=== PATIENT | female | born 1985 | race Caucasian/White ===

== ENCOUNTER 2017-06-27 05:55 | Day surgery (SDC) | payer OTHER, SELFPAY ==
[2017-06-27 06:51] LABS: Hematocrit 36.8 % (37-47); Mean Corp Hgb Conc 35.3 g/gl (32-36); Mean Corpuscular Hgb 30.4 pg (27.0-32.0); Mean Corpuscular Volume 86.2 fL (81-99); Mean Platelet Vol. 9.7 fl (6.2-12.0); Platelet Count 241 K/mm3 (150-450); RBC Distribution Width CV 13.3 % (11.6-14.6); Red Blood Count 4.27 M/mm3 (4.2-5.4)
[2017-06-27 06:54] LABS: Scan Indicated on CBC? Y/N NO
[2017-06-27 07:13] VITALS: BP 109/74; PULSE 87; RESP 16; TEMP 36.8; O2SAT 100; BMI 25.3
[2017-06-27] MEDS: Doxycycline 100 MG CAPSULE PO (07:24)
[2017-06-27] MEDS: Acetaminophen 500 MG Tablet 1000 MG PO (07:24)
[2017-06-27] MEDS: Ketorolac 60 MG/2 ML Vial IM (07:25)
--- NOTE | 2017-06-27 07:30 | POC_PTH ---
PATIENT: ROLO BERMAN [place] [facility] [place][id number] AGE/SX: 31/F ROOM: RE06/27/[address]: Dr. Leatha Guadarrama MD : 1985 BED: DIS: 06/27/2017 SPEC #: [id number] RECD: 06/27/17 08:39 STATUS: TERRY JAMES #: [id number] IDALMIS: 06/27/17 07:[address]: Leatha Guadarrama DEPT: SURGICAL PATHOLOGY RECD BY: Javi Miranda ENTERED: 06/27/17 12:10 SP TYPE: PROD CONC OTHR DR: Dr. Yony Rodriguez, DO Tissues: Product of conception, NOS Procedures: Surgery Specimen Level IV HEADER OPERATION: Dilation and curettage, suction PRE-OP DIAGNOSIS: Missed TISSUE SUBMITTED: Products of conception MICROSCOPIC DIAGNOSIS Products of conception: Decidua, immature placental tissue and tissue (products of conception). SJ:yeni 06/28/16 MICROSCOPIC DESCRIPTION Slides are reviewed. GROSS DESCRIPTION Received in fixative is one container labeled with the patient's name and designated products of conception. The specimen consists of multiple irregular fragments of pink-red soft tissue mixed with placental tissue that in aggregate measure 7 x 7 x 3 cm. A few pieces of tissue is also noted. Pig Handler tissue is submitted in three cassettes. Cassette 3 also contains the tissue. / SJ:yeni 06/27/17 TC:5 CPT: 37239
[2017-06-27] MEDS: Lubricating Jelly 60 GM Tube 30 GM TOPICAL (07:45)
[2017-06-27] MEDS: Methylergonovine 0.2 MG/ML Ampul IM (07:57)
--- NOTE | 2017-06-27 08:03 | OP.PCM_ITS ---
Report of Operation Date of Procedure: 06/27/17 Pre-Operative Diagnosis: 12 week missed Post-Operative Diagnosis: same Surgery/Procedure Performed:: Suction D&C Description of Surgical Findings:: Appearing cervix, 12 week size anteverted uterus mainframe programmer analyst: aldair anguiano ms3 Type of Anesthesia:: MAC/Supplemental/Local Anesthesiologist: Shelton Nelson Special Medications: None Specimen's removed: products of conception Drains: None Estimated Blood Loss (mL): 50 cc Fluids Replaced: 700 cc LR Description of Procedure: The patient was taken to the operating room where she was prepped and draped in a dorsolithotomy position. A bimanual examination was done and confirmed the uterus to be 12 weeks size and [anteverted]. A weighted speculum was placed in the vagina and the anterior lip of the cervix was grasped with a single-tooth tenaculum. The cervix was dilated serially. A 12 mm suction curette was placed to the uterine fundus and the suction was created. Several passes were made to remove clots and products of conception. When minimal tissue was returning a gentle sharp curettage was then done of the uterine cavity. The uterine cry was appreciated and another gentle pass was made with the suction curette. At this point there is no active bleeding from the uterus and minimal blood and no further products of conception were removed. The instruments removed from the cervix and the cervix was observed and no active bleeding was identified. The tenaculum was removed off the cervix and hemostasis of the tenaculum site was assured. Made of the instruments removed from the vagina and the vaginal sweep was completed by me. Sponge and needle counts were correct. The patient was taken to the recovery room in stable condition. Methergine 0.25 mg IM given ?1 Findings: 12 week size uterus, normal cervix and vagina. Specimen: Products of conception Grafts/Implants Used: None - Complications None - Admit VTE Documentation VTE Present on Admission: No VTE Mechan Device Prophylaxis: SCD's VTE Pharm Prophylaxis ordered?: No Reason prophylaxis not ordered:: Procedure Not Indicated
[2017-06-27 08:05] VITALS: BP 109/74; BP 115/83; PULSE 82; RESP 16; TEMP 36.4; O2SAT 94
[2017-06-27 08:15] VITALS: BP 109/74; BP 115/78; PULSE 74; RESP 16; O2SAT 99
[2017-06-27 08:30] VITALS: BP 108/74; BP 109/74; PULSE 72; RESP 16; TEMP 36.3; O2SAT 98
[2017-06-27 09:36] VITALS: BP 109/74
== END 2017-06-27 09:39 | disposition home or self-care (01) ==
LOC: SDC 05:57 → AC 05:58
PROVIDERS: Family Provider Preventive Medicine Occupational Medicine; PCP Preventive Medicine Occupational Medicine; Visit Provider Obstetrics & Gynecology
PROC: (CPT 59820; principal; 2017-06-27 07:15)
DX: O02.1 Missed abortion (principal); K58.9 Irritable bowel syndrome, unspecified; M79.7 Fibromyalgia; L40.50 Arthropathic psoriasis, unspecified; Z3A.12 12 weeks gestation of pregnancy
CPT/HCPCS: 01965; 59820; 85027; 86850; 86900; 88305; J7120

== ENCOUNTER 2017-07-06 12:50 | Day surgery (SDC) | payer OTHER, SELFPAY ==
[2017-07-06 13:20] VITALS: BP 116/70; PULSE 71; RESP 16; TEMP 36.6; O2SAT 100; BMI 25.5
[2017-07-06] MEDS: Ketorolac 60 MG/2 ML Vial IM (13:26)
[2017-07-06] MEDS: Acetaminophen 500 MG Tablet 1000 MG PO (13:26)
[2017-07-06] MEDS: Doxycycline 100 MG CAPSULE PO (13:26)
[2017-07-06 13:55] LABS: Hematocrit 38.1 % (37-47); Hemoglobin 12.9 g/dl (12.0-15.0); Mean Corp Hgb Conc 33.9 g/gl (32-36); Mean Corpuscular Hgb 29.3 pg (27.0-32.0); Mean Corpuscular Volume 86.6 fL (81-99); Mean Platelet Vol. 9.6 fl (6.2-12.0); Platelet Count 273 K/mm3 (150-450); RBC Distribution Width CV 13.2 % (11.6-14.6); RBC Distribution Width SD 42.2 fl (35.1-43.9); Scan Indicated on CBC? Y/N NO; White Blood Count 5.4 K/mm3 (4.4-11.0)
[2017-07-06 14:13] LABS: hCG Titer Quant., Serum 338 mIU/mL (<9 non-preg)
--- NOTE | 2017-07-06 14:35 | EMB_PTH ---
PATIENT: ROLO BERMAN LOC: [facility] [place] U#:[id number] AGE/SX: 31/F ROOM: RE07/06/[address]: Dr. Leatha Guadarrama MD : 1985 BED: DIS: 07/06/2017 SPEC #: [id number] RECD: 07/06/17 15:47 STATUS: TERRY JAMES #: [id number] IDALMIS: 07/06/17 14:[address]: Leatha Guadarrama DEPT: SURGICAL PATHOLOGY RECD BY: Man Monique ENTERED: 07/07/17 11:57 SP TYPE: ENDOM BX/C IGLESIA DR: Dr. Yony Rodriguez, DO Tissues: Endometrium, NOS Procedures: Surgery Specimen Level IV HEADER OPERATION: Dilation and curettage, suction PRE-OP DIAGNOSIS: Incomplete with ongoing bleeding and possible retained products of conception in the uterus TISSUE SUBMITTED: Endometrial curettings MICROSCOPIC DIAGNOSIS Endometrial curettings: Fragments of decidua, endometrial tissue and a few immature chorionic villi and blood clots (consistent with retained products of conception). LASHAY:yeni 07/10/17 COMMENT Please make reference to previous specimen ([id number]) products of conception with diagnosis of decidua, immature placental tissue and tissue (products of conception). MICROSCOPIC DESCRIPTION Slides are reviewed. GROSS DESCRIPTION Received in fixative is one container labeled with the patient's name and designated endometrial curettings. The specimen consists of multiple irregular fragments of pink-vega soft tissue that in aggregate measure 4 x 3.5 x 0.8 cm. The specimen is totally submitted in three cassettes. / Jewell 07/07/17 TC:5 CPT: 43624
--- NOTE | 2017-07-06 15:21 | PCM.DC.D&C ---
Discharge Diet: No Restrictions Discharge Activity: Return to Normal Activity, May Shower, May Take a Tub Bath - in 2 weeks. Allergies/Adverse Reactions: Allergies No Known Allergies Allergy (Verified 06/26/17 15:59) Medications to take at Discharge Lactobacillus Combination No.4 [Probiotic] 1 each PO DAILY 06/26/17 Pnv95/Ferrous Fumarate/FA [ Formula Tablet] 1 each PO DAILY 06/26/17 Primary Care Physician: Yony Rodriguez DO [Primary Care Provider] - Please Follow Up With: Leatha Guadarrama MD - [phone] When: 2-4 weeks
[2017-07-06 15:26] VITALS: BP 115/78; BP 116/70; PULSE 70; RESP 16; TEMP 36.6; O2SAT 100
--- NOTE | 2017-07-06 15:26 | OP.PCM_ITS ---
Report of Operation Date of Procedure: 07/06/17 Pre-Operative Diagnosis: incomplete w/ ongoing bleeding Post-Operative Diagnosis: same Surgery/Procedure Performed:: suction D&C Description of Surgical Findings:: nromal cervix staking engineer: AILEEN Grossman Type of Anesthesia:: MAC/Supplemental/Local Anesthesiologist: Khris Giordano Special Medications: none Specimen's removed: endometrial curettings Drains: none Estimated Blood Loss (mL): 10cc Fluids Replaced: 700 cc LR Description of Procedure: The patient was taken to the operating room where she was prepped and draped in a dorsolithotomy position. A bimanual examination was done and confirmed the uterus to be 6 weeks size and [anteverted]. A weighted speculum was placed in the vagina and the anterior lip of the cervix was grasped with a single-tooth tenaculum. The cervix was dilated serially. A 7 mm suction curette was placed to the uterine fundus and the suction was created. Several passes were made to remove clots and products of conception. When minimal tissue was returning a gentle sharp curettage was then done of the uterine cavity. The uterine cry was appreciated and another gentle pass was made with the suction curette. At this point there is no active bleeding from the uterus and minimal blood and no further products of conception were removed. The instruments removed from the cervix and the cervix was observed and no active bleeding was identified. Did a brief ultrasound which confirmed a bright white endometrial stripe. The tenaculum was removed off the cervix and hemostasis of the tenaculum site was assured. Made of the instruments removed from the vagina and the vaginal sweep was completed by me. Sponge and needle counts were correct. The patient was taken to the recovery room in stable condition. Findings: 6 week size uterus, normal cervix and vagina. Specimen: Endometrial curettings and possible products of conception Grafts/Implants Used: none - Complications none - Admit VTE Documentation VTE Present on Admission: No VTE Mechan Device Prophylaxis: SCD's VTE Pharm Prophylaxis ordered?: No Reason prophylaxis not ordered:: Procedure Not Indicated
[2017-07-06 15:30] VITALS: BP 107/72; BP 116/70; PULSE 68; RESP 16; O2SAT 100
[2017-07-06 15:35] VITALS: BP 112/75; BP 116/70; PULSE 60; RESP 16; O2SAT 100
[2017-07-06 15:40] VITALS: BP 109/74; BP 116/70; PULSE 62; RESP 16; TEMP 36.6; O2SAT 100
[2017-07-06 16:35] VITALS: BP 116/70
== END 2017-07-06 16:35 | disposition home or self-care (01) ==
LOC: SDC 12:52 → AC 12:53
PROVIDERS: Family Provider Preventive Medicine Occupational Medicine; PCP Preventive Medicine Occupational Medicine; Visit Provider Obstetrics & Gynecology
PROC: (CPT 59812; principal; 2017-07-06 14:20)
DX: O03.1 Delayed or excessive hemorrhage following incomplete spontaneous abortion (principal); Z87.891 Personal history of nicotine dependence; K58.9 Irritable bowel syndrome, unspecified; M79.7 Fibromyalgia; L40.50 Arthropathic psoriasis, unspecified
CPT/HCPCS: 01965; 59812; 84702; 85027; 88305; J3010; J7120; J2405

== ENCOUNTER 2018-06-28 11:23 | Day surgery (SDC) | payer OTHER, SELFPAY ==
--- NOTE | 2018-06-26 10:15 | PCM.HP.BLA ---
History and Physical Date of Admission: 06/28/18 Pre-Op History and Physical HPI: The patient is a 32 year old female presenting for pre-operative visit. She is scheduled for laparoscopic right ovarian cystectomy, for hemorrhagic ovarian cyst with acute pelvic pain on 06/28/2018. Procedure discussed along with risks, benefits and complications. Other alternatives discussed for management. Consent form signed? Yes. PAST MEDICAL HISTORY Diagnosis Date ? Abnormal Pap smear of cervix ? Fibromyalgia ? Irregular menstrual cycle Irregular periods ? Mild dysplasia of cervix 2002 ? Mitral valve prolapse diagnosed age 14 ? PMH - PAST MEDICAL HISTORY OF mitral valve prolapse ? Psoriatic arthritis (HCC) 11/2014 PAST SURGICAL HISTORY Procedure Laterality Date ? COLPOSCOPY (VAGINOSCOPY) 2002 Colposcopy ? D&C (INCOMPLETE AB), ANY TRIMESTER 07/06/2017 repeat D&C for possible retained POCs, ongoing bleeding ? REMOVAL OF TONSILS,<12 Y/O Tonsillectomy ? SURG RX MISSED ABORTN,1ST TRI 06/27/2017 suction D&C for 12 weeks missed ab, Current Outpatient Prescriptions: PNV NO.95/FERROUS FUM/FOLIC AC ( ORAL) Take by mouth. Disp: Rfl: LACTOBACILLUS COMBO NO.6 (PROBIOTIC COMPLEX ORAL) Take by mouth. Disp: Rfl: No current facility-administered medications for this visit. ALLERGIES: Patient has no known allergies. PERSONAL HISTORY: Social History Marital status: Spouse name: Max Years of education: Number of children: 0 Occupational History Occupation Employer Comment [employer] Social History Main Topics Smoking status: Former Smoker Packs/day: 0.00 Years: 14.00 Quit date: 03/2016 Smokeless tobacco: Never Used Alcohol use: Yes Comment: rare, not while Drug use: No Sexual activity: Yes Partners with: Male FAMILY HISTORY: FAMILY HISTORY Problem Relation Age of Onset ? Arthritis Mother Rheumatoid ? Hypertension Father ? Kidney Disease Father kidney stones ? Diabetes Paternal Grandfather ? Cancer Paternal Grandmother breast and liver ? Heart Maternal Grandmother REVIEW OF SYMPTOMS: GENERAL: denies fevers or chills ENDOCRINOLOGY: has not been on steroids Cardiology : denies palpitations or chest pain Respiratory: denies SOB or cough Hematology: denies history of prolonged bleeding or easy bruising or VTE Allergy: Denies history of personal or family history of allergy to anesthesia PHYSICAL EXAMINATION: VITALS: Blood pressure 102/60, weight 171 lb 6.4 oz (77.7 kg), last menstrual period 06/21/2018. GENERAL: The patient is well nourished, well hydrated in no acute distress. , The patient is oriented to time, place, and person. NECK: Supple. No lynphadenopathy, normal thyroid, no thyromegaly. LUNGS: Clear to auscultation bilaterally. no wheezes, rhonchi or rales HEART: Regular rate and rhythm, Normal heart sounds and No murmurs or gallops GENITALIA: Normal external genitalia, Urethral meatus normal, Bladder nontender, normal vagina and normal vaginal tone, normal cervix, normal uterus, size and consistency, perineum WNL and left ovarian fullness and tenderness, no exquisite tenderness IMPRESSION: Right ovarian cyst, acute pelvic pain PLAN: The risks/benefits/alternatives and personal involved for the planned laparoscopic right ovarian cystectomy, possible removal of other tissue if hemorrhage, possible blood transfusion were reviewed with the patient. Her questions were answered to her satisfaction and she desires to proceed. Consent was signed. I reviewed with her postop instructions and expectations. We reviewed that the lesion must be examined by pathology to ensure is benign, but that my clinical suspicion of malignancy is very low. I have reviewed and updated past medical and surgical history, medications and allergies This H&P performed in office 06/25/18 Leatha Guadarrama M.D.
[2018-06-28] VITALS (8 sets, daily range): BP systolic 98–122; BP diastolic 68–75; PULSE 48–83; RESP 16–18; TEMP 36.1–37.2; O2SAT 95–100; BMI 26.6
[2018-06-28] MEDS: Celecoxib 200 MG Capsule PO (07:00)
[2018-06-28] MEDS: Acetaminophen 500 MG Tablet 1000 MG PO (07:00)
[2018-06-28] MEDS: Gabapentin 400 MG Capsule PO (07:00)
[2018-06-28 11:56] LABS: Hematocrit 40.9 % (37-47); Hemoglobin 13.5 g/dl (12.0-15.0); Mean Corpuscular Hgb 29.9 pg (27.0-32.0); Mean Corpuscular Volume 90.5 fL (81-99); Mean Platelet Vol. 10.1 fl (6.2-12.0); Platelet Count 294 K/mm3 (150-450); RBC Distribution Width CV 12.6 % (11.6-14.6); RBC Distribution Width SD 41.1 fl (35.1-43.9); Red Blood Count 4.52 M/mm3 (4.2-5.4); White Blood Count 5.3 K/mm3 (4.4-11.0)
[2018-06-28 11:57] LABS: Scan Indicated on CBC? Y/N NO
[2018-06-28 11:59] LABS: Internal QC Validated? YES +Cl - CLEAR BKGD; Pregnancy, Urine Negative Negative
--- NOTE | 2018-06-28 13:00 | TISS_PTH ---
PATIENT: ROLO BERMAN [place]: [facility] [place] U#:[id number] AGE/SX: 32/F ROOM: RE06/28/[address]: Dr. Leatha Guadarrama MD : 1985 BED: DIS: 06/28/2018 SPEC #: [id number] RECD: 06/28/18 14:56 STATUS: TERRY JAMES #: [id number] IDALMIS: 06/28/18 13:[address]: Leatha Guadarrama DEPT: SURGICAL PATHOLOGY RECD BY: Javi Miranda ENTERED: 06/29/18 11:27 SP TYPE: Tissue Bx IGLESIA DR: Dr. Yony Rodriguez DO Tissues: A - TISSUE SURGICALLY REMOVED B - CYST Procedures: Surgery Specimen Level IV HEADER OPERATION: Laparoscopic ovarian cystectomy with chromotubation PRE-OP DIAGNOSIS: Right ovarian cyst, acute pelvic pain TISSUE SUBMITTED: A - Peritoneal biopsy, possible endometriosis, B - Right ovarian cyst wall MICROSCOPIC DIAGNOSIS A. Peritoneal biopsy: Fragments of fibroconnective tissue with focal area of hemorrhage and chronic inflammation and reactive changes, negative for endometriosis. B. Right ovarian cyst wall: Fragments of ovarian tissue and fibrinous material, consistent with benign cyst content. See comment. LASHAY:yeni 07/02/18 COMMENT B. No obvious cyst lining epithelium is noted. MICROSCOPIC DESCRIPTION Slides are reviewed. GROSS DESCRIPTION A - Received in fixative is one container labeled with the patient's name and designated peritoneal biopsy, possible endometriosis. The specimen consists of two fragments of hemorrhagic soft tissue that in aggregate measure 0.6 x 0.3 x 0.1 cm. The specimen is totally submitted in one cassette. B - Received in fixative is one container labeled with the patient's name and designated right ovarian cyst wall. The specimen consists of multiple variable sized fragments of vega-white soft tissue that in aggregate measure 2.5 x 1.5 x 0.3 cm. The largest piece measures 1.8 cm in greatest dimension. This piece is serially sectioned. The entire specimen is submitted in one cassette. / LASHAY:yein 06/29/18 TC: 5 CPT: 64267 x2
[2018-06-28] MEDS: Bupivacaine Mpf 0.5% 30 ML VIAL (13:45)
[2018-06-28] MEDS: Methylene Blue 1% 100 MG/10 ML VIAL (14:20)
--- NOTE | 2018-06-28 14:42 | DCINST_ITS ---
Discharge Diet: No Restrictions - Increase fluid intake for the next 48 hours. Discharge Activity: Return to Normal Activity, May Drive - when you are no longer taking pain/narcotic meds., May Shower, May Take a Tub Bath - in 7 days Additional Activity Instructions:: Ambulate often the next week after surgery. Nothing in the vagina for 5 days. Call your doctor if your incision/area has: Continuous Slow Oozing, Sudden Increased Bleeding, Increased Pain/ Swelling, Increased Redness, Foul Smelling Discharge Call your doctor if you observe: Fever of 101 or Higher Additional Instructions: Your incisions have skin glue. It can get wet. The glue on for 10-14 days or until it falls off. Allergies/Adverse Reactions: Allergies No Known Allergies Allergy (Verified 06/27/18 14:44) Medications to take at Discharge Lactobacillus Combination No.4 [Probiotic] 1 each PO DAILY 06/26/17 Ibuprofen [Ibu] 600 mg PO PRN PRN 06/27/18 Ibuprofen/Diphenhydramine Cit [Advil Pm Caplet] 1 each PO PRN PRN 06/27/18 Hydrocodone/Acetaminophen [[place] 5-325 Tablet] 1 - 2 each PO Q8 PRN 5 Days #20 tablet 06/28/18 The following prescriptions were given: Hydrocodone/Acetaminophen [[place] 5-325 Tablet] 1 - 2 each PO Q8 PRN 5 Days #20 tablet PRN Reason: Pain Primary Care Physician: Yony Rodriguez DO [Primary Care Provider] - Test Results: Test results from this visit will be discussed in further detail at your follow- up appointment, if applicable. Please Follow Up With: Leatha Guadarrama MD - [phone] When: 2-4 weeks or as needed
--- NOTE | 2018-06-28 14:43 | PCM.OPRPT ---
Report of Operation Date of Procedure: 06/28/18 Pre-Operative Diagnosis: acute RLQ pain, right ovarian cyst Post-Operative Diagnosis: same Surgery/Procedure Performed:: laparoscopic right ovarian cystectomy and peritoneal biopsy of left uterosacral ligament, chromopertubation Description of Surgical Findings:: Normal-appearing uterus, normal-appearing tubes bilaterally. Left uterosacral ligament with small 5 mm vesicular and edematous lesion that is possibly endometriosis. No other obvious endometriosis implants or lesions. No adhesions. Normal-appearing left ovary and tube. Normal-appearing right tube. Right ovary with approximately 3 cm cyst. On chromopertubation, the right tube spilled easily in the left did not spill even after a second syringe of dye was injected feed manager: Demian Wu, MS3 Type of Anesthesia:: General Anesthesiologist: Joey Bass Special Medications: none Specimen's removed: peritoneal biopsy of left uterosacral ligament, right ovarian cyst wall Drains: none Estimated Blood Loss (mL): 10 Fluids Replaced: 800cc Description of Procedure: The patient was taken to the operating room where she was prepped and draped in the dorsolithotomy position. A weighted speculum was placed in the vagina and the anterior lip of the cervix was grasped with a tenaculum. The [employer] uterine manipulator was placed and the remainder of the instruments were removed from the vagina. Attention was turned to the abdomen. All port sites were infiltrated with 0.5% Marcaine before skin incisions were made. A 5 mm intraumbilical incision was made. The anterior abdominal wall was tented up with 2 towel clamps while a 5 mm blade less trocar and sleeve were directly inserted. Intraperitoneal placement was confirmed with the laparoscope. The pneumoperitoneum was created and the underlying abdominal contents were intact. The patient was placed in Trendelenburg. Right and left lower quadrant ports were placed under direct visualization lateral to the inferior epigastric vessels. The bowel was swept away and the above findings were noted. Scissors with cautery were used to incise the ovarian cyst wall. Clear straw-colored fluid returned. The cyst wall was peeled out with a grasper. The base of the cyst was hemostatic. The ovary was placed back in its normal anatomical position. At this point methylene blue dye was diluted in normal saline and injected through the uterine manipulator. After injection of 20 cc, it was noted that the right tube was filling freely. Some of the air from the balloon and the Susana manipulator was taken out, and another 20 cc of solution was injected. The left tube still did not spill dye did not appear to even fill with dye in the proximal portion of the tube. At this point right ovary was reexamined and found to be hemostatic. The lateral ports were removed under direct visualization and no active bleeding was noted. The pneumoperitoneum was released. The skin incisions were closed with Monocryl suture in a subcuticular fashion and skin glue. The vaginal instruments were removed and the vaginal sweep was completed by me. The procedure was performed by me with assistance other than as dictated above. All sponge and needle counts were correct and the patient was taken to the recovery room in stable condition. Grafts/Implants Used: none - Complications none - Admit VTE Documentation VTE Present on Admission: No VTE Mechan Device Prophylaxis: SCD's VTE Pharm Prophylaxis ordered?: No Reason prophylaxis not ordered:: Procedure Not Indicated
--- NOTE | 2018-06-28 14:47 | OP.PCM_ITS ---
Report of Operation Date of Procedure: 06/28/18 Pre-Operative Diagnosis: acute RLQ pain, right ovarian cyst Post-Operative Diagnosis: same Surgery/Procedure Performed:: laparoscopic right ovarian cystectomy and peritoneal biopsy of left uterosacral ligament, chromopertubation Description of Surgical Findings:: Normal-appearing uterus, normal-appearing tubes bilaterally. Left uterosacral ligament with small 5 mm vesicular and edematous lesion that is possibly endometriosis. No other obvious endometriosis implants or lesions. No adhesions. Normal-appearing left ovary and tube. Normal-appearing right tube. Right ovary with approximately 3 cm cyst. On chromopertubation, the right tube spilled easily in the left did not spill even after a second syringe of dye was injected inventory worker: Demian Wu, MS3 Type of Anesthesia:: General Anesthesiologist: Joey Bass Special Medications: none Specimen's removed: peritoneal biopsy of left uterosacral ligament, right ovarian cyst wall Drains: none Estimated Blood Loss (mL): 10 Fluids Replaced: 800cc Description of Procedure: The patient was taken to the operating room where she was prepped and draped in the dorsolithotomy position. A weighted speculum was placed in the vagina and the anterior lip of the cervix was grasped with a tenaculum. The fl3ur uterine manipulator was placed and the remainder of the instruments were removed from the vagina. Attention was turned to the abdomen. All port sites were infiltrated with 0.5% Marcaine before skin incisions were made. A 5 mm intraumbilical incision was made. The anterior abdominal wall was tented up with 2 towel clamps while a 5 mm blade less trocar and sleeve were directly inserted. Intraperitoneal placement was confirmed with the laparoscope. The pneumoperitoneum was created and the underlying abdominal contents were intact. The patient was placed in Trendelenburg. Right and left lower quadrant ports were placed under direct visualization lateral to the inferior epigastric vessels. The bowel was swept away and the above findings were noted. Scissors with cautery were used to incise the ovarian cyst wall. Clear straw- colored fluid returned. The cyst wall was peeled out with a grasper. The base of the cyst was hemostatic. The ovary was placed back in its normal anatomical position. At this point methylene blue dye was diluted in normal saline and injected through the uterine manipulator. After injection of 20 cc, it was noted that the right tube was filling freely. Some of the air from the balloon and the Susana manipulator was taken out, and another 20 cc of solution was injected. The left tube still did not spill dye did not appear to even fill with dye in the proximal portion of the tube. At this point right ovary was reexamined and found to be hemostatic. The lateral ports were removed under direct visualization and no active bleeding was noted. The pneumoperitoneum was released. The skin incisions were closed with Monocryl suture in a subcuticular fashion and skin glue. The vaginal instruments were removed and the vaginal sweep was completed by me. The procedure was performed by me with assistance other than as dictated above. All sponge and needle counts were correct and the patient was taken to the recovery room in stable condition. Grafts/Implants Used: none - Complications none - Admit VTE Documentation VTE Present on Admission: No VTE Mechan Device Prophylaxis: SCD's VTE Pharm Prophylaxis ordered?: No Reason prophylaxis not ordered:: Procedure Not Indicated
[2018-06-28] MEDS: HYDROcodone Bitartrate/Apap 5/325 Tablet PO (16:33)
== END 2018-06-28 19:06 | disposition home or self-care (01) ==
PROVIDERS: Family Provider Preventive Medicine Occupational Medicine; PCP Preventive Medicine Occupational Medicine; Referring Provider Obstetrics & Gynecology; Visit Provider Obstetrics & Gynecology
PROC: (CPT 58350; principal; 2018-06-28 12:45)
DX: N83.201 Unspecified ovarian cyst, right side (principal); Z87.891 Personal history of nicotine dependence; K58.9 Irritable bowel syndrome, unspecified; M79.7 Fibromyalgia; L40.50 Arthropathic psoriasis, unspecified
CPT/HCPCS: 00952; 58350; 58662; 36415; 81025; 85027; 88304; 88305; J7120; J2405